=== PATIENT | female | born 1995 | race African-American/Black ===

== ENCOUNTER 2019-08-16 13:04 | Emergency (ER) | payer MEDICAID ==
[~2019-08-16] VITALS: Ht 170.2 cm; Wt 77.1 kg
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
[2019-08-16] MEDS ORDERED: Acetaminophen 500mg (ES) tab ORAL ONE (14:00)
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
[2019-08-16] MEDS ORDERED: IBUPROFEN600 MG ORAL (15:10)
[2019-08-16] MEDS ORDERED: ROBAXIN-750750 MG PO (15:10)
[2019-08-16 15:20] VITALS: BP 104/70
[2019-08-16 15:25] VITALS: BP 104/70
--- NOTE | 2019-08-16 15:25 | NUR ---
ER DISCHARGE NOTE: Patient is cleared to be discharged per ERMD, pt is aox4, on room air, with stable vital signs. pt was given dc and prescription instructions, pt was able to verbalize understanding, pt id band removed. pt is able to ambulate with steady gait. pt took all belongings.
--- NOTE | 2019-08-16 15:32 | Diagnostic Imaging Report ---
Clinical Indication: Right wrist pain Technique: 3 views of the right wrist Comparison: None Findings: No acute fractures. No dislocations. The joint spaces are preserved. Impression: Negative
== END 2019-08-16 15:25 | disposition home or self-care (01) ==
LOC: EMR 13:25
DX: S63.501A Unspecified sprain of right wrist, initial encounter (principal); F07.81 Postconcussional syndrome; T14.8XXA Other injury of unspecified body region, initial encounter; V43.52XA Car driver injured in collision with other type car in traffic accident, initial encounter; Y92.410 Unspecified street and highway as the place of occurrence of the external cause
CPT/HCPCS: 29125; 70450; 73110; 81025; Z7502; 99284